=== PATIENT | female | born 1940 | race Caucasian/White ===

== ENCOUNTER → 2019-12-07 | Outpatient (CLI) | payer MEDICARE ==
[~2019-12-07] MED LIST: OMNIPAQUE 350 MG/ML, 100ML BOTTLE ONE
[2019-12-07 10:36] LABS: CREATININE 0.87 mg/dL (0.55-1.02)
== END | disposition home or self-care (01) ==
LOC: RAD 09:22
PROVIDERS: ATTEND Specialist
DX: K76.0 Fatty (change of) liver, not elsewhere classified (principal); C56.9 Malignant neoplasm of unspecified ovary; R97.1 Elevated cancer antigen 125 [CA 125]; Z87.412 Personal history of vulvar dysplasia
CPT/HCPCS: 36415; 71260; 74177; 82565; Q9967

== ENCOUNTER 2020-02-21 14:07 | Inpatient (IN) | payer MEDICARE ==
[~2020-02-21] VITALS: Ht 160 cm; Wt 82.1 kg
[2020-02-21 16:29] VITALS: BP 116/72
[2020-02-21] MEDS: D5%-0.45NACL+KCL 20MEQ 1,000 ML IV SCH (18:56)
[2020-02-21] MEDS ORDERED: ONDANSETRON 2MG/ML, 2ML IVPush PRN (19:00)
[2020-02-21] MEDS ORDERED: morphine SULFATE 10 MG/ML, 1ML IVPush PRN (19:00)
[2020-02-21] MEDS: FAMOTIDINE 20 MG/2 ML IVPush SCH (19:41)
[2020-02-21 21:10] VITALS: BP 101/63
[2020-02-22] MEDS: D5%-0.45NACL+KCL 20MEQ 1,000 ML IV SCH ×3 (01:20→18:36)
[2020-02-22 01:23] VITALS: BP 109/68
[2020-02-22 05:29] LABS: BASOPHILS # (AUTO) 0.02 x10^3/uL (0-0.1); BASOPHILS % (AUTO) 0 % (0-1); EOSINOPHILS # (AUTO) 0.11 x10^3/uL (0-0.4); EOSINOPHILS % (AUTO) 2 % (1-7); LYMPHOCYTES # (AUTO) 1.17 x10^3/uL (1-3.4); LYMPHOCYTES % (AUTO) 20 % (22-44); MD NO; MEAN CORPUSCULAR HEMOGLOBIN 29.2 pg (27.0-34.8); MEAN CORPUSCULAR HGB CONC 32.9 g/dL (32.4-35.8); MEAN CORPUSCULAR VOLUME 88.7 fL (80-100); MEAN PLATELET VOLUME 7.4 fL (7.4-10.4); MONOCYTES # (AUTO) 0.55 x10^3/uL (0.2-0.8); MONOCYTES % (AUTO) 9 % (2-9); NEUTROPHILS # (AUTO) 3.94 x10^3/uL (1.8-6.8); NEUTROPHILS % (AUTO) 68 % (42-75); PLATELET COUNT 361 x10^3/uL (130-400); RED BLOOD COUNT 4.01 x10^6/uL (3.82-5.3); RED CELL DISTRIBUTION WIDTH 13.4 % (9.6-15.2)
[2020-02-22 05:34] LABS: ANION GAP 4 mmol/L (5-15); CALCIUM 8.4 mg/dL (8.5-10.1); CHLORIDE 110 mmol/L (98-107); CREATININE 0.71 mg/dL (0.55-1.02)
[2020-02-22 07:04] VITALS: BP 99/64
[2020-02-22] MEDS: FAMOTIDINE 20 MG/2 ML IVPush SCH (08:20)
[2020-02-22 12:51] VITALS: BP 107/70
[2020-02-22 19:13] VITALS: BP 114/76
[2020-02-23 01:23] VITALS: BP 109/74
[2020-02-23] MEDS: D5%-0.45NACL+KCL 20MEQ 1,000 ML IV SCH ×4 (01:34→23:12)
[2020-02-23 05:41] LABS: BASOPHILS # (AUTO) 0.03 x10^3/uL (0-0.1); BASOPHILS % (AUTO) 1 % (0-1); EOSINOPHILS # (AUTO) 0.09 x10^3/uL (0-0.4); EOSINOPHILS % (AUTO) 2 % (1-7); LYMPHOCYTES # (AUTO) 1.48 x10^3/uL (1-3.4); LYMPHOCYTES % (AUTO) 25 % (22-44); MD NO; MEAN CORPUSCULAR HEMOGLOBIN 28.9 pg (27.0-34.8); MEAN CORPUSCULAR HGB CONC 32.7 g/dL (32.4-35.8); MEAN CORPUSCULAR VOLUME 88.4 fL (80-100); MEAN PLATELET VOLUME 7.9 fL (7.4-10.4); MONOCYTES # (AUTO) 0.62 x10^3/uL (0.2-0.8); MONOCYTES % (AUTO) 11 % (2-9); NEUTROPHILS # (AUTO) 3.65 x10^3/uL (1.8-6.8); NEUTROPHILS % (AUTO) 62 % (42-75); PLATELET COUNT 342 x10^3/uL (130-400); RED BLOOD COUNT 3.83 x10^6/uL (3.82-5.3); RED CELL DISTRIBUTION WIDTH 13.6 % (9.6-15.2)
[2020-02-23 05:50] LABS: ANION GAP 6 mmol/L (5-15); CALCIUM 8.5 mg/dL (8.5-10.1); CHLORIDE 111 mmol/L (98-107)
[2020-02-23 08:12] VITALS: BP 110/70
[2020-02-23] MEDS: FAMOTIDINE 20 MG/2 ML IVPush SCH (08:32)
[2020-02-23] MEDS ORDERED: LIDOCAINE 1%, 10ML ONE (11:00)
[2020-02-23 13:44] VITALS: BP 110/74
[2020-02-23 19:39] VITALS: BP 113/65
[2020-02-24 00:08] VITALS: BP 110/68
[2020-02-24 05:24] LABS: BASOPHILS # (AUTO) 0.02 x10^3/uL (0-0.1); BASOPHILS % (AUTO) 0 % (0-1); EOSINOPHILS # (AUTO) 0.14 x10^3/uL (0-0.4); EOSINOPHILS % (AUTO) 2 % (1-7); LYMPHOCYTES # (AUTO) 1.29 x10^3/uL (1-3.4); LYMPHOCYTES % (AUTO) 20 % (22-44); MD NO; MEAN CORPUSCULAR HEMOGLOBIN 29.2 pg (27.0-34.8); MEAN CORPUSCULAR HGB CONC 33.3 g/dL (32.4-35.8); MEAN CORPUSCULAR VOLUME 87.8 fL (80-100); MEAN PLATELET VOLUME 7.7 fL (7.4-10.4); MONOCYTES # (AUTO) 0.69 x10^3/uL (0.2-0.8); MONOCYTES % (AUTO) 11 % (2-9); NEUTROPHILS # (AUTO) 4.24 x10^3/uL (1.8-6.8); NEUTROPHILS % (AUTO) 66 % (42-75); PLATELET COUNT 364 x10^3/uL (130-400); RED BLOOD COUNT 3.75 x10^6/uL (3.82-5.3); RED CELL DISTRIBUTION WIDTH 13.3 % (9.6-15.2)
[2020-02-24 05:32] LABS: ANION GAP 5 mmol/L (5-15); CALCIUM 8.7 mg/dL (8.5-10.1); CHLORIDE 110 mmol/L (98-107)
[2020-02-24 05:37] LABS: ALANINE AMINOTRANSFERASE 25 U/L (12-78); ALKALINE PHOSPHATASE 69 U/L (45-117); BILIRUBIN,TOTAL 0.6 mg/dL (0.2-1.0); CREATININE 0.72 mg/dL (0.55-1.02); TOTAL PROTEIN 6.9 g/dL (6.4-8.2)
[2020-02-24 06:33] VITALS: BP 124/73
[2020-02-24] MEDS: D5%-0.45NACL+KCL 20MEQ 1,000 ML IV SCH ×2 (09:21→16:04)
[2020-02-24] MEDS: FAMOTIDINE 20 MG/2 ML IVPush SCH (09:21)
[2020-02-24 13:40] VITALS: BP 116/74
== END 2020-02-24 20:30 | disposition home or self-care (01) | DRG 389 ==
LOC: 3N 16:55
PROVIDERS: ADMIT Specialist; ATTEND Specialist
DX: K56.600 Partial intestinal obstruction, unspecified as to cause (principal); C56.9 Malignant neoplasm of unspecified ovary; Z86.718 Personal history of other venous thrombosis and embolism; Z90.49 Acquired absence of other specified parts of digestive tract; Z92.21 Personal history of antineoplastic chemotherapy
CPT/HCPCS: 36415; 49083; 76705; 80048; 80053; 83735; 84100; 85025; 86304; G0378; J3480; J3490